=== PATIENT | male | born 1955 | race Caucasian/White ===

== ENCOUNTER 2024-03-14 03:57 | Emergency (ER) | payer MEDICARE, OTHER ==
[2024-03-14 04:20] VITALS: TEMP 98.3
[2024-03-14] MEDS ORDERED: DUONEB 0.5-3 MG/3 ml Neb IH ONE (04:31)
[2024-03-14 04:33] LABS: BASOPHIL % 0.5 % (0.2-1.2); Basophil (Absolute #) 0.05 x10^3/uL (0.01-0.08); Eosinophil % 0.6 % (0.8-7.0); Eosinophil (Absolute #) 0.06 x10^3/uL (0.04-0.54); Hematocrit 48.2 % (40.1-51.0); IMMATURE GRAN # 0.03 x10^3u/L (0.001-0.031); IMMATURE GRAN % 0.3 % (0.001-0.429); Lymphocyte (Absolute #) 0.82 x10^3/uL (1.32-3.57); Lymphocytes % 8.8 % (21.8-53.1); Mean Cell Volume 98.8 fL (79.0-92.2); Mean Corpuscular Hemoglobin 34.8 pg (25.7-32.2); Mean Corpuscular Hgb Concent. 35.3 g/dL (32.3-36.5); Mean Platelet Volume 9.1 fL (9.4-12.4); Monocyte (Absolute #) 1.24 x10^3/uL (0.30-0.82); Monocytes % 13.3 % (5.3-12.2); Neutrophil % 76.5 % (34.0-67.9); Platelet Count 219 x10^3/uL (163-337); Red Blood Count 4.88 x10^6/uL (4.63-6.08); Red Cell Distribution Width 12.6 % (11.6-14.4); White Blood Count 9.3 x10^3/uL (4.23-9.07)
[2024-03-14] MEDS: DUONEB 0.5-3 MG/3 ml Neb IH ONE (04:36)
[2024-03-14 04:45] LABS: ALBUMIN 4.7 g/dL (3.5-5.0); ANION GAP 15.4 MEQ/L (5-15); BILIRUBIN,TOTAL 0.9 mg/dL (0.2-1.3); Calcium 9.7 mg/dL (8.4-10.2); Creatinine 1 0.65 mg/dL (0.66-1.25); EST GLOMERULAR FILTRATION RATE 103.9 ML/MIN; Potassium 3.9 mmol/L (3.5-5.1); Total Protein 7.7 g/dL (6.3-8.2)
--- NOTE | 2024-03-14 05:30 | ERPHSYRPT ---
- History of Present Illness Time Seen by Provider: 03/14/24 04:15 Source: patient, family Exam Limitations: no limitations Patient Subjective Stated Complaint: C/O SOB for a few days that became worse during the night Triage Nursing Assessment: Patient ambulated back to ER. SOB noted with exertion. No cough at thsi time but patient reports cough at home. He is alert and oriented. Skin tone normal. 02 sats 88% on room air. 02 @ 2L per N/C applied and 02 sats increased to 92%. Physician History: This is a 68-year-old white male patient who is a former smoker of tobacco cigarettes and presents with a few day history of shortness of breath and worsened this morning. Patient denies chest pain. Patient arrives with a room air oxygen saturation level 88%. Patient was placed on 2 L of oxygen via nasal cannula and this saturation level increased to 92%. Patient underwent respiratory therapy evaluation and treatment with albuterol. Symptomatically he improved. Patient denies chest pain. He has no known or diagnosed history of cardiac disease. Timing/Duration: day(s) (A few days) Severity of Dyspnea-Max: mild (Moderate) Severity of Dyspnea-Current: mild (To moderate) Possible Cause: no prior episodes Associated Symptoms: No cough, No chest pain/discomfort Allergies/Adverse Reactions: No Known Drug Allergies Allergy (Verified 03/14/24 04:02) Home Medications: Aspirin EC 81 mg [Ecotrin 81 mg] 81 mg PO DAILY 03/14/24 [History] Multivitamin 1 tab PO DAILY 03/14/24 [History] Hx Tetanus, Diphtheria Vaccination/Date Given: Yes Hx Influenza Vaccination/Date Given: No Hx Pneumococcal Vaccination/Date Given: No Immunizations Up to Date: Yes Travel Risk - International Travel Have you traveled outside of the country in past 3 weeks: No - Emerging Infectious Disease Are you exhibiting symptoms associated with any current EIDs: Yes Symptoms: Cough: New Onset, Shortness of Breath - Review of Systems Constitutional: No Symptoms Eyes: No Symptoms Ears, Nose, & Throat: No Symptoms Respiratory: Cough, Dyspnea Cardiac: No Symptoms Abdominal/Gastrointestinal: No Symptoms Genitourinary Symptoms: No Symptoms Musculoskeletal: No Symptoms Skin: No Symptoms Neurological: No Symptoms Psychological: No Symptoms - Past Medical History Pertinent Past Medical History: Yes Neurological History: TIA Cardiac History: High Cholesterol, Hypertension Respiratory History: COPD GI Medical History: Hernia - Past Surgical History Past Surgical History: Yes Gastrointestinal: Hernia Repair Other Surgical History: right elbow - Social History Smoking Status: Former smoker Exposure to second hand smoke: No Drug Use: none - Social Determinants of Health Will the patient participate in the screening: Yes Do you worry about a steady place to live?: No Do you have any problems with any of the following?: No known problems In the past 12 months,have you had to go without utilities?: No Transportation Issues: No Has anyone in your support network made you feel unsafe?: No Have you or anyone in your house had to go without enough: No - Nursing Vital Signs Nursing Vital Signs: Initial Vital Signs Pulse Rate 90 03/14/24 04:00 Respiratory Rate 26 H 03/14/24 04:00 Blood Pressure 169/99 03/14/24 04:00 O2 Sat by Pulse Oximetry 90 L 03/14/24 04:00 Pain Scale Pain Intensity 0 - Physical Exam General Appearance: no apparent distress, alert, thin Eye Exam: PERRL/EOMI, eyes nml inspection Ears, Nose, Throat Exam: hearing grossly normal, normal ENT inspection, normal pharynx Neck Exam: normal inspection, non-tender, supple, full range of motion Respiratory Exam: normal breath sounds, airway intact, No chest tenderness, No respiratory distress Cardiovascular/Chest Exam: normal heart sounds, regular rate/rhythm Abdominal/Gastrointestinal Exam: soft, normal bowel sounds, No tenderness Rectal Exam: not done Extremity Exam: non-tender, normal range of motion, normal inspection, normal capillary refill, no calf tenderness, no pedal edema, pelvis stable Neurologic Exam: alert, oriented x 3, cooperative, safety leader II-XII nml as tested, normal mood/affect, nml cerebellar function, nml station & gait, sensation nml Skin Exam: normal color, warm, dry Lymphatic Exam: No adenopathy SpO2 Interpretation: hypoxic SpO2: 92 O2 Delivery: Room Air - Course Nursing assessment & vital signs reviewed: Yes EKG Interpreted by Me: RATE ([id number]), Sinus Rhythm, NORMAL AXIS, NORMAL INTERVALS, NORMAL QRS, NORMAL ST-T, Other (No acute ischemic changes. QTc is 445. No comparison twelve-lead EKG available) Ordered Tests: Active Orders 24 hr Category Date Time Status Veterinary Anatomist STAT Care 03/14/24 04:23 Active EKG-ER Only STAT Care 03/14/24 04:22 Active IV Insertion STAT Care 03/14/24 04:22 Active Oxygen-ED Only Nasal Cannula 2 lpm Care 03/14/24 04:22 Active Pulse Oximetry (ED) STAT Care 03/14/24 04:22 Active CHEST 1 VIEW (PORTABLE) Stat Exams 03/14/24 04:23 Taken CHEST WITH CONTRAST [CT] Stat Exams 03/14/24 05:03 Taken CBC W DIFF Stat Lab 03/14/24 04:28 Completed CMP Stat Lab 03/14/24 04:28 Completed D-DIMER QUANTITATIVE Stat Lab 03/14/24 04:28 Completed NT PRO BNPII Stat Lab 03/14/24 04:28 Completed TROPONIN Q4H Lab 03/14/24 04:28 Completed TROPONIN Q4H Lab 03/14/24 08:30 Ordered TROPONIN Q4H Lab 03/14/24 12:30 Ordered Respiratory Therapy Assessment DAILY RT 03/14/24 04:35 Active Medication Summary Generic Name Dose Route Start Last Admin Trade Name Freq PRN Reason Stop Dose Admin Losartan Potassium 50 mg 03/14/24 10:00 03/14/24 06:06 Losartan Potassium 50 Mg Tablet PO 04/13/24 09:59 50 mg DAILY TEODORA Administration Discontinued Medications Generic Name Dose Route Start Last Admin Trade Name Freq PRN Reason Stop Dose Admin Albuterol/Ipratropium Confirm 03/14/24 04:31 Ipratropium/Albuterol Sulfate 3 Ml Ampul.Neb Administered 03/14/24 04:32 Dose 3 ml IH .STK-MED ONE Albuterol/Ipratropium 3 ml 03/14/24 04:35 03/14/24 04:36 Ipratropium/Albuterol Sulfate 3 Ml Ampul.Neb IH 03/14/24 04:36 3 ml STAT ONE Administration Methylprednisolone Sodium 0 mg 03/14/24 05:03 03/14/24 05:40 Succinate 125 mg/ Sterile IV 03/14/24 05:04 125 mg Water 2 ml STAT ONE Administration Sodium Chloride 500 mls @ 500 mls/hr 03/14/24 05:03 03/14/24 06:43 Sodium Chloride 0.9% 500 Ml IV 03/14/24 06:02 Infused .Q1H ONE Infusion Sodium Chloride Confirm 03/14/24 05:39 Sodium Chloride 0.9% 500 Ml Administered 03/14/24 05:40 Dose 500 mls @ ud IV .STK-MED ONE Methylprednisolone Sodium Succinate Confirm 03/14/24 05:39 Methylprednis Sod Succ 125 Mg/2 Ml Vial Administered 03/14/24 05:40 Dose 125 mg .ROUTE .STK-MED ONE Sterile Water Confirm 03/14/24 05:39 Water For Injection,Sterile 10 Ml Vial Administered 03/14/24 05:40 Dose 10 ml IJ .STK-MED ONE Lab/Rad Data: Laboratory Result Diagrams 03/14/24 04:28 03/14/24 04:28 Laboratory Results 03/14/24 03/14/24 03/14/24 Range/Units 04:59 04:28 04:28 WBC (4.23-9.07) x10^3/uL RBC (4.63-6.08) x10^6/uL Hgb (13.7-17.5) g/dL Hct (40.1-51.0) % MCV (79.0-92.2) fL MCH (25.7-32.2) pg MCHC (32.3-36.5) g/dL RDW (11.6-14.4) % Plt Count (163-337) x10^3/uL MPV (9.4-12.4) fL Gran % (34.0-67.9) % Immature Gran % (Auto) (0.001-0.429) % Nucleat RBC Rel Count (0.00-0.2) % Eos # (Auto) (0.04-0.54) x10^3/uL Immature Gran # (Auto) (0.001-0.031) x10^3u/L Absolute Lymphs (auto) (1.32-3.57) x10^3/uL Absolute Monos (auto) (0.30-0.82) x10^3/uL Absolute Nucleated RBC (0.00-0.012) x10^3u/L Lymphocytes % (21.8-53.1) % Monocytes % (5.3-12.2) % Eosinophils % (0.8-7.0) % Basophils % (0.2-1.2) % Absolute Granulocytes (1.78-5.38) x10^3/uL Basophils # (0.01-0.08) x10^3/uL D-Dimer (0.0-0.50) mg/L Sodium (135-145) mmol/L Potassium (3.5-5.1) mmol/L Chloride (98-107) mmol/L Carbon Dioxide (22-30) mmol/L Anion Gap (5-15) MEQ/L BUN (9-20) mg/dL Creatinine (0.66-1.25) mg/dL Estimated GFR ML/MIN Glucose (74-106) mg/dL Calcium (8.4-10.2) mg/dL Total Bilirubin (0.2-1.3) mg/dL AST (17-59) U/L ALT (0-50) U/L Alkaline Phosphatase (38-126) U/L Troponin I < 0.012 (0.000-0.033) ng/mL NT-Pro-B Natriuret Pep 35.9 (<300) pg/mL Serum Total Protein (6.3-8.2) g/dL Albumin (3.5-5.0) g/dL Influenza Type A Ag NEGATIVE (NEGATIVE) Influenza Type B Ag NEGATIVE (NEGATIVE) RSV (PCR) NEGATIVE (NEGATIVE) SARS-CoV-2 (PCR) POSITIVE A (NEGATIVE) 03/14/24 03/14/24 03/14/24 Range/Units 04:28 04:28 04:28 WBC 9.3 H (4.23-9.07) x10^3/uL RBC 4.88 (4.63-6.08) x10^6/uL Hgb 17.0 (13.7-17.5) g/dL Hct 48.2 (40.1-51.0) % MCV 98.8 H (79.0-92.2) fL MCH 34.8 H (25.7-32.2) pg MCHC 35.3 (32.3-36.5) g/dL RDW 12.6 (11.6-14.4) % Plt Count 219 (163-337) x10^3/uL MPV 9.1 L (9.4-12.4) fL Gran % 76.5 H (34.0-67.9) % Immature Gran % (Auto) 0.3 (0.001-0.429) % Nucleat RBC Rel Count 0.0 (0.00-0.2) % Eos # (Auto) 0.06 (0.04-0.54) x10^3/uL Immature Gran # (Auto) 0.03 (0.001-0.031) x10^3u/L Absolute Lymphs (auto) 0.82 L (1.32-3.57) x10^3/uL Absolute Monos (auto) 1.24 H (0.30-0.82) x10^3/uL Absolute Nucleated RBC 0.00 (0.00-0.012) x10^3u/L Lymphocytes % 8.8 L (21.8-53.1) % Monocytes % 13.3 H (5.3-12.2) % Eosinophils % 0.6 L (0.8-7.0) % Basophils % 0.5 (0.2-1.2) % Absolute Granulocytes 7.10 H (1.78-5.38) x10^3/uL Basophils # 0.05 (0.01-0.08) x10^3/uL D-Dimer 0.78 H* (0.0-0.50) mg/L Sodium 138 (135-145) mmol/L Potassium 3.9 (3.5-5.1) mmol/L Chloride 102 (98-107) mmol/L Carbon Dioxide 24 (22-30) mmol/L Anion Gap 15.4 H (5-15) MEQ/L BUN 13 (9-20) mg/dL Creatinine 0.65 L (0.66-1.25) mg/dL Estimated GFR 103.9 ML/MIN Glucose 95 (74-106) mg/dL Calcium 9.7 (8.4-10.2) mg/dL Total Bilirubin 0.90 (0.2-1.3) mg/dL AST 117 H (17-59) U/L ALT 118 H (0-50) U/L Alkaline Phosphatase 107 (38-126) U/L Troponin I (0.000-0.033) ng/mL NT-Pro-B Natriuret Pep (<300) pg/mL Serum Total Protein 7.7 (6.3-8.2) g/dL Albumin 4.7 (3.5-5.0) g/dL Influenza Type A Ag (NEGATIVE) Influenza Type B Ag (NEGATIVE) RSV (PCR) (NEGATIVE) SARS-CoV-2 (PCR) (NEGATIVE) - Progress Progress: improved, re-examined Air Movement: good Progress Note: 03/14/24 05:27 My medical decision making and the assignment of moderate complexity to this patient's medical issue today is based on review of the patient's past medical history, review of the patient's medication list, review of patient drug allergy list, history present illness and physical findings on examination. The workup in this patient includes placement of intravenous line, CBC, CMP, BNP, D-dimer, troponin level, twelve-lead EKG, chest x-ray, respiratory therapy evaluation management, infusion of Solu-Medrol. I interpreted the patient's laboratory data results. Based on the laboratory data results, the patient had an elevated D-dimer and I ordered a CT scan of the chest with contrast to evaluate for pneumonia and pulmonary embolus. The remainder of the laboratory data results do not show any acute, emergent findings. 03/14/24 05:29 Differential diagnosis includes but not limited to CHF, COPD, pneumonia, myocardial infarction, arrhythmia 03/14/24 06:43 I interpreted the preliminary report on the chest x-ray. Chest x-ray shows chronic COPD changes. There appears to be right basilar atelectasis. No obvious infiltrate present. Patient moved here recently from [place] and is out of his losartan 50 mg. We will refill his losartan medication for 10 days. 1 tablet each day for 10 days. He will need to follow-up with a primary care provider. 03/14/24 06:47 Patient reexamined. His oxygen saturation levels have now increased to 95% on the 2 L. Symptomatically he is improving. We are awaiting the CT scan of the chest with contrast results. 03/14/24 07:02 Symptomatically improved. On room air, he is now 92%. He has no chest pain. Patient tested positive for COVID-19 infection. We are awaiting the CT scan of the chest with contrast results. I have spoken to Dr. Cedeno who I am transferring care of this patient to. He will follow-up on the CT scan of the chest with contrast and make final disposition. Blood Culture(s) Obtained: Yes Antibiotics given: No Counseled pt/family regarding: lab results, diagnosis, need for follow-up, rad results Medical Desision Making - Independent Historian Additional History obtained from: Spouse - Diagnostic Testing Diagnostic test were ordered, analyzed, and reviewed by me: Yes Radiological Interpretation: Interpreted by me, Reviewed by me, Teleradiologist Report - Risk of complications The pt has a mod risk of morbidity or mortality based on: Need for prescription drug management - Departure Departure Disposition: Home Clinical Impression: COVID-19 virus infection, COPD exacerbation, Hypertension, Hypoxia, Medication refill Condition: Stable Critical Care Time: No Referrals: DOCTOR,NO FAMILY [Primary Care Provider] - Follow up/PCP as directed Instructions: Chronic Obstructive Pulmonary Disease Additional Instructions: Take your medication as prescribed. Call a local provider from the list we provided to make arrangements for follow-up appointment to be seen in the next 5 to 7 days. You have tested positive for COVID-19 infection. Quarantine yourself per current guidelines from CDC and/or your employer's recommendations. Prescriptions: Prednisone 10 mg [Deltasone 10 mg] 10 mg PO TID #12 tablet Losartan Potassium 50 mg PO DAILY #10 tablet Albuterol 8 gm Mdi Hfa [Ventolin Hfa MDI] 8 gm IH Q4H #1 unit
[2024-03-14 05:37] LABS: INFLUENZA A NEGATIVE (NEGATIVE); INFLUENZA B NEGATIVE (NEGATIVE); RESPIRATORY SYNCTIAL VIRUS NEGATIVE (NEGATIVE)
[2024-03-14 05:39] LABS: SARS-CoV-2 Xpert Express POSITIVE (NEGATIVE)
[2024-03-14] MEDS ORDERED: solu-MEDROL ONE (05:39)
[2024-03-14] MEDS ORDERED: Sterile H2O 10 ml IJ ONE (05:39)
[2024-03-14] MEDS ORDERED: Sodium Chloride 0.9% 500 ML 500 ML IV ONE (05:39)
[2024-03-14] MEDS: solu-MEDROL 125 MG, Sterile H2O 10 ml 2 ML IV ONE (05:40)
[2024-03-14] MEDS: Sodium Chloride 0.9% 500 ML 500 ML IV ONE (05:41)
[2024-03-14] MEDS ORDERED: Cozaar 50 MG ONE (06:04)
[2024-03-14] MEDS: Cozaar 50 MG PO SCH (06:06)
[2024-03-14 06:47] VITALS: O2SAT 92
--- NOTE | 2024-03-14 07:02 | XRAY ---
CLINICAL HISTORY: soa; elevated D-dimer COMPARISON: none TECHNIQUE: Contiguous 3.[address] images of the chest were acquired with the administration of intravenous contrast. Coronal and sagittal reconstructions were obtained. One of the following dose-reduction techniques was utilized for this exam. Automated exposure control, adjustment of the mA and/or kV according to patient size, and use of iterative reconstruction. FINDINGS: Patent pulmonary trunk, both pulmonary arteries and its segmental branches with full contrast saturation. Bilateral jones lobular emphysematous changes with upper lobar predominance and subsequent hyperinflation. Bi-basal, middle lobe, and inferior lingula atelectatic bands could be past infection residuals. The scanned pulmonary parenchyma shows no definite consolidative lesions. No free or encysted pleural effusion. Heart size is normal, and there is no pericardial effusion. No pathologically enlarged mediastinal, hilar, or axillary lymph node was identified. There is no definite mass lesion in the chest wall. The scanned upper abdomen showed a hepatic enhancing focal lesion noted in segment VII measures 20x18 mm with fatty parenchyma. Mild thoracic and abdominal aortic intimal atherosclerotic calcifications. Thoracic spine degenerative changes with osteophyte formation. IMPRESSION: 1. No acute or chronic pulmonary thromboembolism. 2. Bilateral jones lobular emphysematous changes with upper lobar predominance and subsequent hyperinflation. 3. Bi-basal, middle lobe, and inferior lingula atelectatic bands could be past infection residuals. 4. Fatty liver, with right hepatic enhancing focal lesion, A dedicated CT abdomen is needed for correlation. Electronically Signed by: Tracie Li MD. (03/14/2024 06:58:55 EDT)
[2024-03-14 07:11] VITALS: BP 172/95; PULSE 79; RESP 28
--- NOTE | 2024-03-14 20:27 | XRAY ---
Indication: Short of breath. Comparison: None Portable chest hyperinflated with minimal right base subsegmental atelectasis/scarring. No focal infiltrate, consolidation, or large effusion. Heart not enlarged. Bony thorax intact with osteopenia and mild degenerative changes. Impression: Nonacute hyperinflated chest with chronic features.
== END 2024-03-14 07:28 | disposition home or self-care (01) ==
LOC: ED 03:57
DX: U07.1 COVID-19 (principal); J44.1 Chronic obstructive pulmonary disease with (acute) exacerbation; I10 Essential (primary) hypertension; R09.02 Hypoxemia; Z76.0 Encounter for issue of repeat prescription; E78.5 Hyperlipidemia, unspecified; Z79.52 Long term (current) use of systemic steroids; Z79.899 Other long term (current) drug therapy
CPT/HCPCS: 0241U; 36000; 36415; 71045; 71260; 80053; 83880; 84484; 85025; 85379; 93005; 93041; 94640; 94760; 96374; 99284; J2919; A9270-GY

== ENCOUNTER 2025-06-17 04:59 | Emergency (ER) | payer MEDICARE, OTHER ==
[2025-06-17 05:09] VITALS: TEMP 98.1
--- NOTE | 2025-06-17 05:35 | ERPHSYRPT ---
- History of Present Illness Time Seen by Provider: 06/17/25 05:30 Source: patient Exam Limitations: no limitations Patient Subjective Stated Complaint: DIFFICULTY URINATING Triage Nursing Assessment: Pt ambulated into ER, handcuffed, with officer at bedside. Pt c/o dysuria/ urinary retention. Pt states, "I think it's because I've not been given my tamsulosin or finesteride while in [facility]". Pt has had dysuria since last evening and it has just progressed, only dribbling a few drops and the pain has gotten worse. Physician History: Patient is a 70-year-old male inmate accompanied by officer captain former smoker history of hypertension hyperlipidemia COPD emphysema on home O2, anxiety depression and enlarged prostate presents to our ED for evaluation and treatment of urinary retention. Patient states that he last urinated yesterday evening. Patient states he has been off of his tamsulosin and finasteride while in [facility]. Patient attributes his urinary retention to the lack of the medication. Patient describes urinary dribbling with a sense of dysuria. Patient feels suprapubic fullness. No trauma no fever no diarrhea no rash. No nausea no vomiting no chest pain or shortness of breath. Patient otherwise feels well. He voices no other complaints or concerns at this time. Portions of this note were created with voice recognition technology. There may be grammatical, spelling, punctuation or sound alike errors Timing/Duration: yesterday Severity: moderate Modifying Factors: Improves With: nothing Associated Symptoms: denies symptoms Allergies/Adverse Reactions: No Known Drug Allergies Allergy (Verified 06/17/25 05:09) Home Medications: Aspirin EC 81 mg [Ecotrin 81 mg] 81 mg PO DAILY 03/14/24 [History] Multivitamin 1 tab PO DAILY 03/14/24 [History] Albuterol 8 gm Mdi Hfa [Ventolin Hfa MDI] 8 gm IH Q4H PRN PRN 06/17/25 [History] Finasteride 5 mg [Proscar 5 MG] 5 mg PO DAILY 06/17/25 [History] Fluticasone/Vilanterol [Breo Ellipta 200-25 Mcg Inhalr] 1 puff IH DAILY 06/17/25 [History] Losartan Potassium 100 mg PO DAILY 06/17/25 [History] Magnesium Glycinate 100 mg PO DAILY 06/17/25 [History] Montelukast Sodium 10 mg [Singulair 10 MG] 1 tab PO DAILY 06/17/25 [History] Rosuvastatin Calcium 20 mg PO HS 06/17/25 [History] Tamsulosin HCl 1 tab PO HS 06/17/25 [History] Vitamin D3/Vitamin K2 (Mk4) [K2 Plus D3 Tablet] 1 tab PO DAILY 06/17/25 [History] Hx Tetanus, Diphtheria Vaccination/Date Given: No Hx Influenza Vaccination/Date Given: Yes Hx Pneumococcal Vaccination/Date Given: No Travel Risk - International Travel Have you traveled outside of the country in past 3 weeks: No - Emerging Infectious Disease Are you exhibiting symptoms associated with any current EIDs: No Symptoms: Cough: New Onset, Shortness of Breath - Review of Systems All Other Systems: Reviewed and Negative - Past Medical History Pertinent Past Medical History: Yes Neurological History: TIA Cardiac History: High Cholesterol, Hypertension Respiratory History: COPD, Emphysema GI Medical History: Hernia Psycho-Social History: Anxiety, Depression Male Reproductive Disorders: Prostate Problems - Past Surgical History Past Surgical History: Yes Gastrointestinal: Hernia Repair Other Surgical History: right elbow - Social History Smoking Status: Former smoker Exposure to second hand smoke: No Drug Use: none - Social Determinants of Health Will the patient participate in the screening: Yes Do you worry about a steady place to live?: No Do you have any problems with any of the following?: No known problems In the past 12 months,have you had to go without utilities?: No Transportation Issues: No Has anyone in your support network made you feel unsafe?: No Have you or anyone in your house had to go w/o enough food: No - Nursing Vital Signs Nursing Vital Signs: Initial Vital Signs Blood Pressure 174/120 06/17/25 05:06 O2 Sat by Pulse Oximetry 97 06/17/25 05:06 Pain Scale Pain Intensity 6 - Physical Exam General Appearance: no apparent distress, alert, other (Patient resting in bed with his portable oxygen at bedside. Patient on 2 L nasal cannula) Ears, Nose, Throat Exam: normal ENT inspection, moist mucous membranes Neck Exam: normal inspection, full range of motion Respiratory Exam: normal breath sounds, lungs clear, airway intact, No respiratory distress Cardiovascular Exam: regular rate/rhythm, normal heart sounds, normal peripheral pulses Gastrointestinal/Abdomen Exam: soft, normal bowel sounds, tenderness (Suprapubic tenderness to palpation), other (Suprapubic fullness), No mass Back Exam: normal inspection, normal range of motion, No CVA tenderness, No vertebral tenderness Extremity Exam: normal inspection, normal range of motion, pelvis stable Neurologic Exam: alert, oriented x 3, cooperative, normal mood/affect, sensation nml, No motor deficits Skin Exam: normal color, warm, dry, No rash Lymphatic Exam: No adenopathy SpO2 Interpretation: normal SpO2: 98 O2 Delivery: Room Air - Course Nursing assessment & vital signs reviewed: Yes Ordered Tests: Active Orders 24 hr Category Date Time Status UA W/RFX UR CULTURE Stat Lab 06/17/25 05:36 Ordered Lab/Rad Data: Laboratory Results 06/17/25 Range/Units 05:36 Urine Color Yellow (Yellow) Urine Appearance Clear (Clear) Urine pH 7.0 (4.6-8.0) Ur Specific [place] 1.010 (1.005-1.030) Urine Protein Negative (Negative) Urine Glucose (UA) Negative (Negative) mg/dL Urine Ketones Negative (Negative) Urine Blood Small A (Negative) Urine Nitrite Negative (Negative) Urine Bilirubin Negative (Negative) Urine Urobilinogen 0.2 (0.2) mg/dL Ur Leukocyte Esterase Negative (Negative) U Hyaline Cast (Auto) NONE SEEN (0-2) /LPF Urine Microscopic RBC 6-10 A (0-5) /HPF Urine Microscopic WBC 0-2 (0-5) /HPF Ur Epithelial Cells None Seen (None Seen) /HPF Urine Bacteria None Seen (None Seen) /HPF Urine Culture Reflexed NO (NO) - Progress Progress: improved Progress Note: Morales catheter placed. 400 cc urine obtained. Urine appears clear. No obvious precipitation. Analysis pending. 06/17/25 05:36 Patient is a 70-year-old male inmate accompanied by officer captain former smoker history of hypertension hyperlipidemia COPD emphysema on home O2, anxiety depression and enlarged prostate presents to our ED for evaluation and treatment of urinary retention. Physical exam reveals tenderness at the suprapubic region. Overlying soft tissue intact. 400 cc clear urine expressed. Patient states experiencing immediate relief. No active pain or discomfort at this time. UA pending. History obtained from patient Urinary retention differential diagnosis includes BPH, prostate cancer, neurogenic bladder, bladder tumor Portions of this note were created with voice recognition technology. There may be grammatical, spelling, punctuation or sound alike errors Complexity of problems addressed is moderate acute complicated. No critical care time. Complexity of data reviewed and analyzed is moderate. Test ordered test reviewed results analyzed and correlated clinically with history and physical exam. Risk of complication and or risk of morbidity/mortality of patient management is low. Vital stable. Time spent to discharge patient is approximately 15 minutes. Plan of care established for shared decision making. No social determinants of health present to impede follow-up. Portions of this note were created with voice recognition technology. There may be grammatical, spelling, punctuation or sound alike errors 06/17/25 05:40 Counseled pt/family regarding: lab results, diagnosis, need for follow-up - Departure Departure Disposition: Home Clinical Impression: Urinary retention, Microscopic hematuria Condition: Stable Critical Care Time: No Referrals: TRISTAN WESTON MD [Primary Care Provider, [facility]] - Follow up/PCP as directed Additional Instructions: Discharge/Care Plan JOHNCORTEZ was seen on 06/17/25 in the Emergency Room. The patient was counseled regarding Diagnosis,Lab results, Imaging studies, need for follow up and when to return to the Emergency Room. Prescriptions given: Discharge Note I have spoken with the patient and/or caregivers. I have explained the patient's condition, diagnosis and treatment plan based on the information available to me at this time. I have answered the patient's and/or caregiver's questions and addressed any concerns. The patient and/or caregivers have as good understanding of the patient's diagnosis, condition and treatment plan as can be expected at this point. The vital signs have been stable. The patient's condition is stable and appropriate for discharge from the emergency department. The patient will pursue further outpatient evaluation with the primary care physician or other designated or consulting physician as outlined in the discharge instructions. The patient and/or caregivers are agreeable to this plan of care and follow-up instructions have been explained in detail. The patient and/or caregivers have received these instruction. The patient/and or caregivers are aware that any significant change in condition or worsening of symptoms should prompt an immediate return to this or the closest emergency department or call 911.
[2025-06-17 06:16] VITALS: RESP 18
[2025-06-17 06:21] LABS: Glucose, Urine Negative (Negative); Protein,Urine Dip Negative (Negative); WBC 0-2 /HPF (0-5)
[2025-06-17 06:38] VITALS: BP 162/102; PULSE 51; O2SAT 97
== END 2025-06-17 06:46 | disposition home or self-care (01) ==
LOC: ED 04:59
DX: R33.9 Retention of urine, unspecified (principal); R31.29 Other microscopic hematuria; I10 Essential (primary) hypertension; Z79.899 Other long term (current) drug therapy; Z99.81 Dependence on supplemental oxygen